=== PATIENT | male | born 1980 | race Caucasian/White ===

== ENCOUNTER → 2017-06-08 | Outpatient (CLI) | payer BC ==
[~2017-06-08] MED LIST: ACET500; AMOCLA875 PO; Naprosyn500 MG PO; Norco 5-325 Ta1 EACH PO
[2017-06-08 17:24] LABS: Influenza A Negative (NEGATIVE); Influenza B Negative (NEGATIVE)
== END | disposition home or self-care (01) ==
LOC: LAB 16:23
PROVIDERS: Family Medicine
DX: J02.9 Acute pharyngitis, unspecified (principal); R05 Cough
CPT/HCPCS: 87804

== ENCOUNTER 2023-10-25 19:37 | Emergency (ER) | payer BC ==
[~2023-10-25] VITALS: Ht 177.8 cm; Wt 83.9 kg
[2023-10-25 19:51] VITALS: BP 124/87
[2023-10-25] MEDS ORDERED: Diphth,Pertuss(Acell),Tet Vac 0.5 ML VIAL IM ONE (19:55)
== END 2023-10-25 20:07 | disposition home or self-care (01) ==
LOC: ER 19:37
DX: S51.811A Laceration without foreign body of right forearm, initial encounter (principal); W45.0XXA Nail entering through skin, initial encounter; Z23 Encounter for immunization
CPT/HCPCS: 12001; 90471; 90715; 99283-25